=== PATIENT | male | born 1955 | race Caucasian/White ===

== ENCOUNTER 2018-08-31 11:00 | Day surgery (SDC) | payer OTHER, BC ==
[2018-08-31] MEDS: NS 1,000 ML IV (11:20)
[2018-08-31] MEDS ORDERED: LIDOCAINE 2% INJ 100 MG/5 ML SDV (FOR ANES.) As Ordered (12:03)
[2018-08-31] MEDS ORDERED: PROPOFOL 500 MG/50 ML VIAL As Ordered (12:03)
== END 2018-08-31 12:35 | disposition home or self-care (01) ==
LOC: M OPP 12:35
DX: Z12.11 Encounter for screening for malignant neoplasm of colon (principal); K64.0 First degree hemorrhoids; K57.30 Diverticulosis of large intestine without perforation or abscess without bleeding; K63.5 Polyp of colon
CPT/HCPCS: G0105

== ENCOUNTER 2024-05-16 06:21 | Day surgery (SDC) | payer OTHER, MEDICARE, BC ==
[~2024-05-16] VITALS: Ht 175.3 cm; Wt 100.2 kg
[~2024-05-16 06:21] MED LIST: NS 1,000 ML IV ONE
[2024-05-16] MEDS ORDERED: LIDOCAINE 2% 100MG/5ML SDV (FOR ANES.) As Ordered ONE (07:32)
[2024-05-16] MEDS ORDERED: propofoL 500 MG/50 ML VIAL As Ordered ONE (07:32)
[2024-05-16 07:46] VITALS: TEMP 97.8
[2024-05-16 08:02] VITALS: BP 124/64; O2SAT 98
== END 2024-05-16 08:10 | disposition home or self-care (01) ==
LOC: M OPP 06:21
PROVIDERS: ATTEND Internal Medicine Gastroenterology
DX: Z12.11 Encounter for screening for malignant neoplasm of colon (principal); Z86.010 Personal history of colon polyps; Z80.0 Family history of malignant neoplasm of digestive organs; D12.5 Benign neoplasm of sigmoid colon; K64.8 Other hemorrhoids; K57.30 Diverticulosis of large intestine without perforation or abscess without bleeding